=== PATIENT | female | born 1985 | race Caucasian/White ===

== ENCOUNTER 2017-05-13 05:26 | Inpatient (IN) | payer OTHER ==
[~2017-05-13] VITALS: Ht 152.4 cm; Wt 54.0 kg
[~2017-05-13 05:26] MED LIST: KETOROLAC TROMETHAMINE 30 MG/ML VIAL IVP SCH
[2017-05-13] MEDS ORDERED: PREN1TAB80 PO (05:50)
[2017-05-13 05:52] VITALS: BP 118/73
[2017-05-13] MEDS ORDERED: RINGERS SOLUTION,LACTATED 1,000 ML IV ONE (12:06)
[2017-05-13] MEDS ORDERED: OXYTOCIN 30 UNITS/LACT RINGERS 500 ML IV ONE ×2 (12:33→19:23)
[2017-05-13] MEDS ORDERED: RINGERS SOLUTION,LACTATED 1,000 ML IV PRN (12:33)
[2017-05-13] MEDS ORDERED: RINGERS SOLUTION,LACTATED 1,000 ML IV SCH (12:33)
[2017-05-13] MEDS ORDERED: METOCLOPRAMIDE HCL 5 MG/ML 2 ML VIAL IVP PRN (12:45)
[2017-05-13] MEDS ORDERED: LIDOCAINE HCL/PF 1% 30 ML VIAL INJ PRN (12:45)
[2017-05-13] MEDS ORDERED: CITRIC ACID/SODIUM CITRATE 30 ML SOLUTION UDCUP PO PRN (12:45)
[2017-05-13] MEDS ORDERED: FentaNYL CITRATE-PF 100 MCG/2 ML VIAL IVP PRN ×5 (12:45→19:30)
[2017-05-13 13:06] LABS: EOSINOPHILS % (AUTO) 0.1 % (1.0-6.0); HEMATOCRIT 33.6 % (36-46); HEMOGLOBIN 11.3 g/dL (12.0-16.0); LYMPHOCYTES # (AUTO) 1.1 K/uL (1.0-4.8); LYMPHOCYTES % (AUTO) 6.4 % (22.0-44.0); MEAN CORPUSCULAR HEMOGLOBIN 27.5 pg (26.0-34.0); MEAN CORPUSCULAR HGB CONC 33.8 G/dL (31.0-37.0); MEAN CORPUSCULAR VOLUME 81 fL (80-100); MONOCYTES # (AUTO) 0.2 K/uL (0.1-1.0); MONOCYTES % (AUTO) 1.3 % (2.0-9.0); NEUTROPHILS # (AUTO) 15.3 K/uL (1.8-7.7); RED BLOOD CELL COUNT(AUTO) 4.13 MIL/uL (4.00-5.20); RED CELL DISTRIBUTION WIDTH 14.5 % (11.5-14.5); WHITE BLOOD COUNT (AUTO) 16.6 K/uL (4.5-11.0)
[2017-05-13 13:09] LABS: NEUTROPHILS % (AUTO) 92.2 % (40.0-70.0)
[2017-05-13] MEDS ORDERED: FentaNYL/BUPIV 0.125%/NS/PF 200 ML ED PRN (13:29)
[2017-05-13] MEDS ORDERED: ONDANSETRON HCL 4 MG/2 ML VIAL IVP PRN ×3 (13:30→19:30)
[2017-05-13] MEDS ORDERED: NALBUPHINE HCL 10 MG/ML VIAL IVP PRN ×4 (13:30→19:30)
[2017-05-13] MEDS ORDERED: DiphenhydrAMINE HCL 50 MG/ML VIAL IVP PRN ×3 (13:30→19:30)
[2017-05-13] MEDS ORDERED: PROMETHAZINE HCL 25 MG/ML VIAL IM PRN (13:30)
[2017-05-13] MEDS ORDERED: LIDOCAINE HCL 2%/EPI 1:200,000/PF 10 ML VIAL ONE ×2 (14:25→18:30)
[2017-05-13] MEDS ORDERED: FentaNYL/BUPIV 0.125%/NS/PF 200 ML ED ONE (14:26)
[2017-05-13] MEDS ORDERED: TERBUTALINE SULFATE 1 MG/ML VIAL ONE (16:36)
[2017-05-13] MEDS ORDERED: OXYTOCIN 30 UNITS/LACT RINGERS 500 ML IV PRN (18:00)
[2017-05-13] MEDS ORDERED: SODIUM CHLORIDE 0.9% 1,000 ML IV ONE (18:16)
[2017-05-13] MEDS ORDERED: SODIUM CHLORIDE 0.9% 100 ML ONE (18:16)
[2017-05-13] MEDS ORDERED: CeFAZolin 2 GM/DEXTROSE 50 ML IV ONE (18:30)
[2017-05-13] MEDS ORDERED: MORPHINE SULFATE/PF 1 MG/ML 10 ML AMP ONE (18:47)
[2017-05-13] MEDS ORDERED: FentaNYL CITRATE-PF 100 MCG/2 ML VIAL ONE (18:47)
[2017-05-13] MEDS ORDERED: GUM MASTIC/STORAX/MSAL/ALCOHOL LIQUID 0.67 ML VIAL TP ONE (18:55)
[2017-05-13] MEDS ORDERED: MEPERIDINE-PF 25 MG/ML SYRINGE IVP PRN (19:30)
[2017-05-13] MEDS ORDERED: OxyCODONE HCL/ACETAMINOPHEN 5-325 MG TABLET PO PRN ×2 (19:30)
[2017-05-13] MEDS ORDERED: NALOXONE HCL 0.4 MG/ML VIAL IVP PRN (19:30)
[2017-05-13] MEDS ORDERED: DEXAMETHASONE SOD PHOS 4 MG/ML VIAL IVP PRN (19:30)
[2017-05-13] MEDS ORDERED: LANOLIN 7 GM OINTMENT TP PRN (19:30)
[2017-05-13] MEDS ORDERED: OXYGEN THERAPY IH SCH ×5 (20:00)
[2017-05-13] MEDS: RINGERS SOLUTION,LACTATED 1,000 ML IV SCH (20:28)
[2017-05-13] MEDS: MAGNESIUM HYDROXIDE SUSPENSION 30 ML UDCUP PO SCH (22:00)
[2017-05-13] MEDS ORDERED: GLYCOPYRROLATE 0.2 MG/ML VIAL IM ONE (23:49)
[2017-05-13] MEDS ORDERED: ONDANSETRON HCL 4 MG/2 ML VIAL IVP ONE (23:49)
[2017-05-13] MEDS ORDERED: KETOROLAC TROMETHAMINE 60 MG/2 ML VIAL IM ONE (23:49)
[2017-05-13] MEDS ORDERED: OXYTOCIN 10 UNITS/ML VIAL IM ONE (23:49)
[2017-05-14] MEDS: KETOROLAC TROMETHAMINE 30 MG/ML VIAL IVP SCH ×2 (00:49→06:27)
[2017-05-14] MEDS: RINGERS SOLUTION,LACTATED 1,000 ML IV SCH (06:06)
[2017-05-14 08:04] LABS: BASOPHILS % (AUTO) 0.1 % (0.0-2.0); EOSINOPHILS % (AUTO) 0.3 % (1.0-6.0); HEMATOCRIT 27.8 % (36-46); HEMOGLOBIN 9.2 g/dL (12.0-16.0); LYMPHOCYTES # (AUTO) 1.7 K/uL (1.0-4.8); LYMPHOCYTES % (AUTO) 14.2 % (22.0-44.0); MEAN CORPUSCULAR HEMOGLOBIN 27.1 pg (26.0-34.0); MEAN CORPUSCULAR HGB CONC 32.9 G/dL (31.0-37.0); MEAN CORPUSCULAR VOLUME 82 fL (80-100); MONOCYTES # (AUTO) 0.5 K/uL (0.1-1.0); MONOCYTES % (AUTO) 4.6 % (2.0-9.0); NEUTROPHILS # (AUTO) 9.5 K/uL (1.8-7.7); NEUTROPHILS % (AUTO) 80.8 % (40.0-70.0); RED BLOOD CELL COUNT(AUTO) 3.37 MIL/uL (4.00-5.20); RED CELL DISTRIBUTION WIDTH 14.5 % (11.5-14.5); WHITE BLOOD COUNT (AUTO) 11.8 K/uL (4.5-11.0)
[2017-05-14] MEDS: MAGNESIUM HYDROXIDE SUSPENSION 30 ML UDCUP PO SCH ×2 (08:50→21:00)
[2017-05-14] MEDS: IBUPROFEN 800 MG TABLET PO PRN (21:35)
[2017-05-15] MEDS: IBUPROFEN 800 MG TABLET PO PRN ×3 (03:01→14:41)
[2017-05-15] MEDS ORDERED: MEASLES/MUMPS/RUBELLA VACCINE, LIVE 0.5 ML/VIAL SQ ONE (07:00)
[2017-05-15] MEDS: MAGNESIUM HYDROXIDE SUSPENSION 30 ML UDCUP PO SCH (07:48)
[2017-05-15] MEDS ORDERED: PERCT PO (09:36)
[2017-05-15] MEDS ORDERED: IBUP-1547 PO (09:40)
[2017-05-15] MEDS ORDERED: DSS100 PO (09:42)
[2017-05-15] MEDS ORDERED: FERR-89 PO (09:43)
== END 2017-05-15 14:40 | disposition home or self-care (01) | DRG 766 ==
LOC: OBSVTOIN 05:26 → 4S 05:26
PROVIDERS: ADMIT Obstetrics & Gynecology; ATTEND Obstetrics & Gynecology
PROC: 10D00Z1 Extraction of Products of Conception, Low, Open Approach (ICD-10-PCS; principal; 2017-05-13)
DX: O77.0 Labor and delivery complicated by meconium in amniotic fluid (principal); O62.0 Primary inadequate contractions; Z3A.39 39 weeks gestation of pregnancy; Z37.0 Single live birth; Z28.21 Immunization not carried out because of patient refusal
CPT/HCPCS: 86850; 86900; 86901; J0690; J1885; J2405; J2590; J3010; J3105; J3490; J7030; J7050; J7120

== ENCOUNTER 2020-05-24 12:16 | Observation (INO) | payer OTHER ==
[~2020-05-24] VITALS: Ht 149.9 cm; Wt 53.1 kg
[~2020-05-24 12:16] MED LIST changes: +DSS100 PO; +FERR-89 PO; +IBUP-2071 PO; -KETOROLAC TROMETHAMINE 30 MG/ML VIAL IVP SCH; +PERCT PO; +PREN1TAB80 PO
[2020-05-24] MEDS ORDERED: ASCO500 PO (12:37)
[2020-05-24] MEDS ORDERED: CYAN250010 PO (12:37)
[2020-05-24] MEDS ORDERED: FOLI0.4T92 PO (12:37)
[2020-05-24] MEDS ORDERED: PREN-217 PO (12:37)
[2020-05-24 12:49] VITALS: BP 141/66
[2020-05-24] MEDS: RINGERS SOLUTION,LACTATED 1,000 ML IV SCH ×2 (13:23→14:16)
== END 2020-05-24 16:20 | disposition home or self-care (01) ==
LOC: 4S 12:16
PROVIDERS: ADMIT Obstetrics & Gynecology; ATTEND Obstetrics & Gynecology
DX: Z03.818 Encounter for observation for suspected exposure to other biological agents ruled out (principal); O62.9 Abnormality of forces of labor, unspecified; Z3A.37 37 weeks gestation of pregnancy
CPT/HCPCS: 87635; G0378; J7120

== ENCOUNTER 2020-05-27 06:50 | Observation (INO) | payer OTHER ==
[~2020-05-27] VITALS: Ht 149.9 cm; Wt 54.0 kg
[~2020-05-27 06:50] MED LIST changes: +ASCO500 PO; +CYAN250010 PO; +FOLI0.4T92 PO; +PREN-217 PO
[2020-05-27 07:22] VITALS: BP 119/64
[2020-05-27] MEDS ORDERED: RINGERS SOLUTION,LACTATED 1,000 ML IV SCH (08:45)
[2020-05-27] MEDS ORDERED: NIFEdipine 10 MG CAPSULE PO ONE (09:30)
== END 2020-05-27 11:30 | disposition home or self-care (01) ==
LOC: 4S 06:50
PROVIDERS: ADMIT Obstetrics & Gynecology; ATTEND Obstetrics & Gynecology
DX: O62.9 Abnormality of forces of labor, unspecified (principal); Z3A.37 37 weeks gestation of pregnancy
CPT/HCPCS: G0378; J7120

== ENCOUNTER 2020-06-02 12:30 | Observation (INO) | payer OTHER ==
[~2020-06-02] VITALS: Ht 150 cm; Wt 54.4 kg
== END 2020-06-02 12:45 | disposition home or self-care (01) ==
LOC: 4S 12:30
PROVIDERS: ADMIT Obstetrics & Gynecology; ATTEND Obstetrics & Gynecology
DX: Z03.818 Encounter for observation for suspected exposure to other biological agents ruled out (principal); O26.893 Other specified pregnancy related conditions, third trimester; Z3A.38 38 weeks gestation of pregnancy
CPT/HCPCS: G0378; U0003

== ENCOUNTER 2020-06-03 06:35 | Observation (INO) | payer OTHER ==
[~2020-06-03] VITALS: Ht 149.9 cm; Wt 53.5 kg
[2020-06-03 07:37] VITALS: BP 117/82
== END 2020-06-03 08:25 | disposition home or self-care (01) ==
LOC: 4S 06:35
PROVIDERS: ADMIT Obstetrics & Gynecology Obstetrics; ATTEND Obstetrics & Gynecology Obstetrics
DX: O62.9 Abnormality of forces of labor, unspecified (principal); Z3A.38 38 weeks gestation of pregnancy

== ENCOUNTER 2020-06-03 11:14 | Inpatient (IN) | payer OTHER ==
[2020-06-03] MEDS ORDERED: METOCLOPRAMIDE HCL 5 MG/ML 2 ML VIAL IVP ONE (11:45)
[2020-06-03] MEDS ORDERED: CITRIC ACID/SODIUM CITRATE 30 ML SOLUTION UDCUP PO ONE (11:45)
[2020-06-03] MEDS ORDERED: RINGERS SOLUTION,LACTATED 1,000 ML IV ONE ×2 (11:45→15:50)
[2020-06-03 11:54] VITALS: BP 115/62
[2020-06-03 12:18] LABS: BASOPHILS % (AUTO) 0.1 % (0.0-2.0); EOSINOPHILS % (AUTO) 0 % (1.0-6.0); HEMATOCRIT 34.3 % (36-46); HEMOGLOBIN 11.4 g/dL (12.0-16.0); LYMPHOCYTES # (AUTO) 1.2 K/uL (1.0-4.8); LYMPHOCYTES % (AUTO) 8.2 % (22.0-44.0); MEAN CORPUSCULAR HEMOGLOBIN 27.1 pg (26.0-34.0); MEAN CORPUSCULAR HGB CONC 33.2 G/dL (31.0-37.0); MEAN CORPUSCULAR VOLUME 82 fL (80-100); MONOCYTES # (AUTO) 0.4 K/uL (0.1-1.0); MONOCYTES % (AUTO) 2.8 % (2.0-9.0); NEUTROPHILS # (AUTO) 12.5 K/uL (1.8-7.7); PLATELET COUNT (AUTO)-OB 201 K/uL (150-450)
[2020-06-03 12:26] LABS: NEUTROPHILS % (AUTO) 88.9 % (40.0-70.0)
[2020-06-03] MEDS ORDERED: OXYTOCIN 30 UNITS/LACT RINGERS 500 ML IV ONE (13:47)
[2020-06-03] MEDS ORDERED: BUPIVACAINE HCL/DEX-WATER/PF 0.75% 2 ML AMP ONE ×2 (13:57→14:02)
[2020-06-03] MEDS ORDERED: LANOLIN 7 GM OINTMENT TP PRN (14:00)
[2020-06-03] MEDS ORDERED: OxyCODONE HCL/ACETAMINOPHEN 5-325 MG TABLET PO PRN ×2 (14:00)
[2020-06-03] MEDS ORDERED: TRIAMCINOLONE ACETONIDE 40 MG/ML VIAL IM ONE (14:15)
[2020-06-03] MEDS ORDERED: TRIAMCINOLONE ACETONIDE 40 MG/ML VIAL ONE (14:19)
[2020-06-03] MEDS ORDERED: FentaNYL CITRATE-PF 100 MCG/2 ML VIAL IVP PRN ×2 (15:00→19:45)
[2020-06-03] MEDS ORDERED: HYDROmorphone 2 MG/ML SYRINGE IVP PRN ×2 (15:00→19:45)
[2020-06-03] MEDS ORDERED: MEPERIDINE-PF 25 MG/ML VIAL IVP PRN ×2 (15:00→19:45)
[2020-06-03] MEDS: RINGERS SOLUTION,LACTATED 1,000 ML IV SCH (15:51)
[2020-06-03] MEDS ORDERED: METHYLERGONOVINE MALEATE 0.2 MG/ML VIAL IM ONE (17:30)
[2020-06-03] MEDS ORDERED: DiphenhydrAMINE HCL 50 MG/ML VIAL IVP PRN (19:45)
[2020-06-03] MEDS ORDERED: ACETAMINOPHEN 500 MG TABLET PO PRN (19:45)
[2020-06-03] MEDS ORDERED: KETOROLAC TROMETHAMINE 30 MG/ML VIAL IVP PRN (19:45)
[2020-06-03] MEDS ORDERED: ONDANSETRON HCL 4 MG/2 ML VIAL IVP PRN (19:45)
[2020-06-03] MEDS ORDERED: OXYGEN THERAPY IH SCH ×2 (20:00)
[2020-06-04] MEDS: ACETAMINOPHEN 1000 MG/ISO-OSM 100 ML IV SCH ×2 (02:06→08:07)
[2020-06-04] MEDS: RINGERS SOLUTION,LACTATED 1,000 ML IV SCH (02:35)
[2020-06-04] MEDS ORDERED: FentaNYL CITRATE-PF 100 MCG/2 ML VIAL IVP ONE (06:16)
[2020-06-04 06:36] LABS: BASOPHILS % (AUTO) 0.1 % (0.0-2.0); EOSINOPHILS % (AUTO) 0 % (1.0-6.0); HEMOGLOBIN 10.1 g/dL (12.0-16.0); LYMPHOCYTES # (AUTO) 1.6 K/uL (1.0-4.8); LYMPHOCYTES % (AUTO) 9.7 % (22.0-44.0); MEAN CORPUSCULAR HEMOGLOBIN 26.7 pg (26.0-34.0); MEAN CORPUSCULAR HGB CONC 32.4 G/dL (31.0-37.0); MEAN CORPUSCULAR VOLUME 82 fL (80-100); MONOCYTES # (AUTO) 0.9 K/uL (0.1-1.0); MONOCYTES % (AUTO) 5.7 % (2.0-9.0); NEUTROPHILS # (AUTO) 13.6 K/uL (1.8-7.7); NEUTROPHILS % (AUTO) 84.5 % (40.0-70.0); PLATELET COUNT (AUTO)-OB 188 K/uL (150-450); RED BLOOD CELL COUNT(AUTO) 3.77 MIL/uL (4.00-5.20); RED CELL DISTRIBUTION WIDTH 14.2 % (11.5-14.5)
[2020-06-04] MEDS: MAGNESIUM HYDROXIDE SUSPENSION 30 ML UDCUP PO SCH ×2 (08:06→21:23)
[2020-06-04] MEDS: IBUPROFEN 800 MG TABLET PO PRN (21:23)
[2020-06-05] MEDS: IBUPROFEN 800 MG TABLET PO PRN ×2 (08:01→16:27)
[2020-06-05] MEDS: MAGNESIUM HYDROXIDE SUSPENSION 30 ML UDCUP PO SCH ×2 (08:25→21:00)
[2020-06-06] MEDS: IBUPROFEN 800 MG TABLET PO PRN (07:49)
[2020-06-06] MEDS ORDERED: PERCT PO (09:22)
== END 2020-06-06 10:50 | disposition home or self-care (01) | DRG 788 ==
LOC: 4S 11:14 → PREOBSVTOIN 06-11 11:38
PROVIDERS: ADMIT Obstetrics & Gynecology; ATTEND Obstetrics & Gynecology
PROC: 10D00Z1 Extraction of Products of Conception, Low, Open Approach (ICD-10-PCS; principal; 2020-06-03)
DX: O34.211 Maternal care for low transverse scar from previous cesarean delivery (principal); O99.824 Streptococcus B carrier state complicating childbirth; Z3A.38 38 weeks gestation of pregnancy; Z37.0 Single live birth
CPT/HCPCS: 86850; 86900; 86901; 86923; 87081; J0131; J1885; J2210; J2765; J3010; J3301; J3490; J7120